=== PATIENT | male | born 1980 | race Two or more races ===

== ENCOUNTER 2019-09-06 00:44 | Observation (INO) ==
[2019-09-06 01:02] VITALS: BMI 23.4
--- NOTE | 2019-09-06 01:28 | DR.ABDMALE ---
HPI Time seen Time Seen by Provider: 09/06/19 02:13 PCP Primary Care Physician: MICHOACANO HPI comment HPI Comment: PATIENT IS 39YR OLD MALE IN ER WITH ABDOMINAL PAIN TIMES 2 DAYS. HE IS JAUDICE FOR SEVERAL WEEKS NOW. HAD BOWEL MOVEMENT TODAY. NAUSEATED BUT NOT VOMITING. DENIES FEVER. PAIN IS SHARP, 10/10 RADIATING TO THE SIDES. DENIES DYSURI. DENIES HAVING SIMILAR PAIN IN THE PAST. PATIENT HAVE NO SIGNIFICANT MEDICAL HISTORY EXCEPT LIVER PROBLEM FROM DAILY ALCOHOL INTAKE. CURRENTLY HE IS JAUDICE AND HAVE BEING JAUDICE FOR FEW WEEKS.PATIENT SPEAKS FIJIAN AND TALKING VIA TELEPHONE [place]. Complaint Chief Complaint Doctors Comments: ABDOMINAL PAIN TIMES 2 DAYS. Chief Complaint:: PT C/O LOWER ABD PAIN FOR 2 DAYS PT'S EYES ARE YELLOW IN COLOR PT ADMITS TO DRINKING BEER DAILY COVID-19 Coronavirus risk:travel/contact w/high risk person: No Has patient experienced Coronavirus symptoms: No Reviewed Nurses Notes Review: Yes Mode of arrival Mode of Arrival: EMS Timing Onset of Chief Complaint: 09/04/19 Came on: Suddenly Duration Duration: Constant Duration: Days Location Location: Diffuse Severity Severity: Moderate Quality Quality: Cramping Context Onset: Suddenly History of: None Modifying factors Worsening Factors: Exertion Improving Factors: Lying Still Associated signs and symptoms Associated Signs and Symptoms: Nausea and Other (JAUDICE.) PMH PMH Past Medical History: No Past Surgical History: No Family History History of Family Medical Conditions: No Social History Does patient currently use any type of tobacco product: No Have you used tobacco products in the last 12 months: No Type of Tobacco Use: None Does any household member use tobacco: No Alcohol Use: None Do you use any recreational Drugs:: No Lives With: Family Lives Where: Home Travel Risk Coronavirus risk:travel/contact w/high risk person: No Has patient experienced Coronavirus symptoms: No Infectious screening In the last 2 months have you had wt loss of >10#?: NO Have you had fever, night sweats or hemotysis?: No Have you traveled outside the country in the last 6 months?: No Isolation: Standard ROS Review of Systems Constitutional: See HPI and Weakness; negative Fever Eyes: No Symptoms Reported, See HPI and Other (JAUDICE.) ENTM: No Symptoms Reported and See HPI; negative Ear Pain, Nose Discharge, Nose Congestion and Throat Pain Respiratoy: No Symptoms Reported and See HPI; negative Moist Cough, Short of Breath and Wheezing Cardiovascular: No Symptoms Reported and See HPI; negative Chest Pain, Edema and Palpitations Gastrointestinal/Abdominal: See HPI and Nausea; negative Abdominal Pain, Constipation, Diarrhea and Vomiting Genitourinary: No Symptoms Reported and See HPI; negative Dysuria, Frequency and Hematuria Neurological: See HPI and Weakness; negative Headache and Dizziness Musculoskeletal: See HPI and Back Pain; negative Muscle Pain Integumentary: See HPI, Change in Color and Juandice Hematologic/Lymphatic: No Symptoms Reported, See HPI, Easy Bruising and Swollen Glands Endocrine: No Symptoms Reported and See HPI; negative Increased Thirst and Increased Urine Psychiatric: No Symptoms Reported and See HPI All Other Systems: Reviewed and Negative PE Vital Signs Vital Signs: Temp Pulse Resp BP Pulse Ox 09/06/19 00:57 98.1 F 79 18 107/56 100 General Limitations: No Limitations General Appearance: Alert and In No Apparent Distress Head Head Exam: Normal Inspection and Atraumatic Eyes Eye exam: PERRL and Scleral Icterus; negative Conjunctival Injection ENT ENT Exam: Normal Exam, Normal Oropharynx, Normal External Ear Exam and TM's Normal Bilaterally Neck Neck Exam: Normal Inspection and Trachea Midline; negative Tenderness and Lymphadenopathy Chest Chest Inspection: Normal Inspection and Symmetric Chest Wall Rise; negative Tenderness Respiratory Respiratory Exam: Normal Lung Sounds Bilat; negative Accessory Muscle Use, Chest Wall Tenderness and Respiratory Distress Respiratory Exam: Bilateral: Clear to Auscultation Cardiovascular Cardiovascular Exam: Regular Rate, Normal Rhythm and Normal Heart Sounds; negative Systolic Murmur and Diastolic Murmur Abdominal Exam Abdominal Exam: Normal Inspection, Normal Bowel Sounds, Soft and Tenderness Abdominal Tenderness: Diffuse and Moderate Rectal Rectal Exam: Deferred Back Back Exam: Normal Inspection Extremeties Extremities Exam: Normal Inspection Exam: Male: Deferred Neurologic Neurological Exam: Alert and Oriented X3; negative Motor Sensory Deficit Psychiatric Psychiatric Exam: Normal Affect and Normal Mood Skin Skin Exam: Other (JAUDICED.) MDM Differential Diagnosis Differential Diagnosis: Bowel Obstruction, Cholcystitis, Cholelethiasis, Constipation, Diverticular disease, Gastritus/PUD, Gastroenteritis, Inflammatory BD, Pancreatitis, Urinary tract infection and Urolithiasis COURSE Treatment Treatment: SEE ORDERS. Consultation Consultation Comments: DISCUSSED PATIENT WITH DR. OLIVA. HE WILL ADMIT PATIENT. Education/Counseling Education/Counseling: Patient Educated On: Diagnosis ROR Labs Reviewed Laboratory Results Reviewed?: Yes Result Diagrams: 09/06/19 01:34 09/06/19 01:34 Laboratory: WBC 4.1 X10^3/uL (3.6-10.0) 09/06/19 01:34 RBC 3.61 X10^6/uL (4.7-6.0) L 09/06/19 01:34 Hgb 11.1 g/dL (13.5-18.0) L 09/06/19 01:34 Hct 31.9 % (42.0-54.0) L 09/06/19 01:34 MCV 88.4 fL (80.0-100.0) 09/06/19 01:34 MCH 30.8 pg (27.0-34.0) 09/06/19 01:34 MCHC 34.8 g/dL (33.0-35.0) 09/06/19 01:34 RDW 16.4 % (11.6-16.5) 09/06/19 01:34 Plt Count 26 X10^3/uL (150.0-450.0) L 09/06/19 01:34 Plt Count Comment Decreased (ADEQUATE) 09/06/19 01:34 MPV 9.3 fL (7.4-11.0) 09/06/19 01:34 Neut % (Auto) 48.3 % (42.0-75.0) 09/06/19 01:34 Lymph % (Auto) 39.4 % (21.0-51.0) 09/06/19 01:34 Miner % (Auto) 8.4 % (0.0-13.0) 09/06/19 01:34 Eos % (Auto) 2.8 % (0.9-2.9) 09/06/19 01:34 Baso % (Auto) 1.1 % (0.2-1.0) H 09/06/19 01:34 Neut # (Auto) 2.0 x10^3/uL (2.2-4.8) L 09/06/19 01:34 Lymph # (Auto) 1.6 X10^3/uL (1.3-2.9) 09/06/19 01:34 Miner # (Auto) 0.3 x10^3/uL (0.3-0.8) 09/06/19 01:34 Eos # (Auto) 0.1 x10^3/uL (0.0-0.2) 09/06/19 01:34 Baso # (Auto) 0.0 X10^3/uL (0.0-0.1) 09/06/19 01:34 Absolute Nucleated RBC 0.2 /100WBC 09/06/19 01:34 Plt Morphology Comment Normal (NORMAL) 09/06/19 01:34 RBC Morphology Normal (NORMAL) 09/06/19 01:34 PT 25.8 SECONDS (11.8-14.3) 09/06/19 01:34 INR Target Range - 09/06/19 01:34 INR 2.45 (0.8-1.3) H 09/06/19 01:34 APTT 50.2 SECONDS (22.9-36.5) H 09/06/19 01:34 PTT Comment - 09/06/19 01:34 Sodium 144 mmol/L (136-145) 09/06/19 01:34 Corrected Sodium TNP 09/06/19 01:34 Potassium 3.5 mmol/L (3.5-5.1) 09/06/19 01:34 Chloride 108 mmol/L (98-107) H 09/06/19 01:34 Carbon Dioxide 26.4 mmol/L (21-32) 09/06/19 01:34 BUN 5 mg/dL (7-18) L 09/06/19 01:34 Creatinine 0.64 mg/dL (0.70-1.30) L 09/06/19 01:34 Est GFR (MDRD) Af Amer > 60 (>60) 09/06/19 01:34 Est GFR (MDRD) Non-Af > 60 (>60) 09/06/19 01:34 Glucose 103 mg/dL (65-99) H 09/06/19 01:34 Calcium 7.1 mg/dL (8.5-10.1) L 09/06/19 01:34 Corrected Calcium 8.4 mg/dL (8.5-10.1) L 09/06/19 01:34 Total Bilirubin 5.80 mg/dL (0.2-1.0) H 09/06/19 01:34 AST 132 Units/L (15-37) H 09/06/19 01:34 ALT 61 Units/L (12-78) 09/06/19 01:34 Alkaline Phosphatase 280 Units/L (46-116) H 09/06/19 01:34 Total Protein 6.2 g/dL (6.4-8.2) L 09/06/19 01:34 Albumin 2.4 g/dL (3.4-5.0) L 09/06/19 01:34 Globulin 3.8 g/dL (2.5-4.5) 09/06/19 01:34 Albumin/Globulin Ratio 0.6 Ratio (1.1-2.1) L 09/06/19 01:34 Amylase 47 Units/L (25-115) 09/06/19 01:34 Lipase 342 Units/L (73-393) 09/06/19 01:34 Specimen Type Random urine 09/06/19 01:41 Urine Color Yellow (YELLOW) 09/06/19 01:41 Urine Appearance Clear (CLEAR) 09/06/19 01:41 Urine pH 6.0 (5.0 - 8.0) 09/06/19 01:41 Ur Specific [place] 1.005 (1.000-1.030) 09/06/19 01:41 Urine Protein Negative (NEGATIVE) 09/06/19 01:41 Urine Glucose (UA) Negative (NEGATIVE) 09/06/19 01:41 Urine Ketones Negative (NEGATIVE) 09/06/19 01:41 Urine Occult Blood Negative (NEGATIVE) 09/06/19 01:41 Urine Nitrite Negative (NEGATIVE) 09/06/19 01:41 Urine Bilirubin Negative (NEGATIVE) 09/06/19 01:41 Urine Urobilinogen Normal (NORMAL) 09/06/19 01:41 Ur Leukocyte Esterase Negative (NEGATIVE) 09/06/19 01:41 XRAY XRAY Interpreted by: Radiologist (REPORT NOTED AND DISCUSSED WITH PATIENT.) and Self Opioid Opioid Risk Tool Age (Dorian box if 16-45): Yes History of Preadolescent Sexual Abuse: No Total: 1 Total Score Risk Category: Low Risk Copyright: Grey predicting aberrant behaviors Diagnosis Discharge Problem: Thrombocytopenia, Acute cholecystitis, Sclerosing mesenteritis, Diverticulitis Liver cirrhosis Qualifiers: Hepatic cirrhosis type: alcoholic cirrhosis Ascites presence: with ascites Qualified Code(s): K70.31 - Alcoholic cirrhosis of liver with ascites Cholelithiasis Qualifiers: Cholelithiasis location: gallbladder Cholecystitis presence: with cholecystitis Cholecystitis acuity: acute Biliary obstruction: with biliary obstruction Qualified Code(s): K80.01 - Calculus of gallbladder with acute cholecystitis with obstruction Instructions Forms: Excuse From Work Precautions for COVID19 Patient Portal Social Distancing
[2019-09-06 01:50] LABS: EOSINOPHILS # (AUTO) 0.1 x10^3/uL (0.0-0.2); LYMPHOCYTES # (AUTO) 1.6 X10^3/uL (1.3-2.9); MEAN CORPUSCULAR HEMOGLOBIN 30.8 pg (27.0-34.0); MEAN CORPUSCULAR HGB CONC 34.8 g/dL (33.0-35.0); WHITE BLOOD COUNT 4.1 X10^3/uL (3.6-10.0)
[2019-09-06 01:51] LABS: BILIRUBIN,URINE NEGATIVE (NEGATIVE); BLOOD/HEMOGLOBIN,URINE NEGATIVE (NEGATIVE); GLUCOSE, URINE NEGATIVE (NEGATIVE); KETONES,URINE NEGATIVE (NEGATIVE); LEUKOCYTE ESTERASE ,URINE NEGATIVE (NEGATIVE); NITRITES,URINE NEGATIVE (NEGATIVE); PROTEIN,URINE NEGATIVE (NEGATIVE); UROBILINOGEN,URINE NORMAL (NORMAL)
[2019-09-06 01:56] LABS: APPEARANCE,URINE CLEAR (CLEAR); COLOR,URINE YELLOW (YELLOW)
[2019-09-06 01:58] LABS: BASOPHILS % (AUTO) 1.1 % (0.2-1.0); EOSINOPHILS % (AUTO) 2.8 % (0.9-2.9); HEMATOCRIT 31.9 % (42.0-54.0); HEMOGLOBIN 11.1 g/dL (13.5-18.0); LYMPHOCYTES % (AUTO) 39.4 % (21.0-51.0); MEAN CORPUSCULAR VOLUME 88.4 fL (80.0-100.0); MEAN PLATELET VOLUME 9.3 fL (7.4-11.0); MONOCYTES # (AUTO) 0.3 x10^3/uL (0.3-0.8); MONOCYTES % (AUTO) 8.4 % (0.0-13.0); NEUTROPHILS % (AUTO) 48.3 % (42.0-75.0); PLATELET COUNT 26 X10^3/uL (150.0-450.0); RED BLOOD COUNT 3.61 X10^6/uL (4.7-6.0); RED CELL DISTRIBUTION WIDTH 16.4 % (11.6-16.5)
[2019-09-06 01:59] LABS: ALANINE AMINOTRANSFERASE 61 Units/L (12-78); ALBUMIN 2.4 g/dL (3.4-5.0); ALKALINE PHOSPHATASE 280 Units/L (46-116); AMYLASE 47 Units/L (25-115); ASPARTATE AMINO TRANSFERASE 132 Units/L (15-37); BLOOD UREA NITROGEN 5 mg/dL (7-18); CALCIUM 7.1 mg/dL (8.5-10.1); CARBON DIOXIDE 26.4 mmol/L (21-32); CHLORIDE 108 mmol/L (98-107); COR CA(FOR HYPOALB) 8.4 mg/dL (8.5-10.1); CREATININE 0.64 mg/dL (0.70-1.30); LIPASE 342 Units/L (73-393); SODIUM 144 mmol/L (136-145); TOTAL PROTEIN 6.2 g/dL (6.4-8.2); eGFR NON BLACK RACES > 60 (>60)
[2019-09-06 02:05] LABS: PLATELET MORPHOLOGY COMMENT NORMAL (NORMAL)
--- NOTE | 2019-09-06 03:47 | CT ---
CT abdomen and pelvis with contrastIndication: Lower abdominal painTECHNIQUEHelical images through the abdomen and pelvis with contrast. Coronal and sagittal reformats provided.COMPARISONNone availableFINDINGSLimited images through the lower chest demonstrate no acute abnormality. Review of bone windows demonstrates no destructive osseousAbdomen: There is marked hepatic cirrhosis. Portal venous hypertension is seen with enlarged portal vein and numerous varices. The umbilical vein is recanalized, with portosystemic shunt seen via the femoral vessels.Paraesophageal large varices are noted as well.Adrenal glands are normal. The kidneys show no hydroureteronephrosis. Aorta and branch vessels are normal. Spleen is enlarged. Perigastric varices noted. The stomach and small bowel show no convincing acute abnormality. Colonic diverticulosis is noted, with wall thickening of the right colon. Appendix is normal. There is haziness of the abdominal mesentery.Gallstones are seen in the gallbladder.Pelvis: Urinary bladder and rectum are normal. Prostate gland is normal.IMPRESSION1. Marked hepatic cirrhosis with portal venous hypertension, splenomegaly and numerous varices including paraesophageal varices.2. There is small ascites and haziness to the mesentery with wall thickening of the colon. Most of this is probably reactive to the cirrhosis, but concurrent colitis or mesenteritis is not excluded.3. Gallstones in the gallbladder. Mild reactive wall thickening of the gallbladder to the cirrhosis is favored. Nevertheless, acute cholecystitis cannot be excluded in the correct clinical setting.Electronically signed by: EDILSON SAUCEDO (September 06, 2019 03:46:33)
[2019-09-06] MEDS ORDERED: D5 NS 1000 ML 1,000 ML IV ONE (04:20)
[2019-09-06] MEDS ORDERED: ZOSYN VIAL 3.375 GRAMS 3.375 G in NS 100 ML IV + SPIKE MINIBAG* 100 ML IV ONE (04:27)
[2019-09-06] MEDS ORDERED: D5 NS 1000 ML 1,000 ML IV SCH (05:00)
[2019-09-06] MEDS ORDERED: ZOSYN VIAL 3.375 GRAMS IV ONE (05:16)
[2019-09-06] MEDS ORDERED: NS 100 ML IV + SPIKE MINIBAG* 100 ML IV ONE (05:16)
[2019-09-06] MEDS ORDERED: PEPCID 20 MG IV PREMIX* 20 MG/50 ML BAG IV PRN (05:26)
[2019-09-06] MEDS ORDERED: ZOFRAN INJ 4 MG VIAL IVP PRN (05:26)
--- NOTE | 2019-09-06 09:13 | US ---
HISTORYABD PAINSTUDYABDOMINAL SONOGRAMCOMPARISONCT abdomen/pelvis dated same day.TECHNIQUEMultiple ramsay scale and color flow Doppler images of the abdomen were obtained.FINDINGSThe liver is small and demonstrates increased echogenicity likely representing diffuse fatty infiltration versus fibrosis. Cirrhotic appearing liver border. The portal vein is patent and demonstrates hepatopetal flow. No intraparenchymal mass or intrahepatic biliary ductal dilatation can be identified. The gallbladder gallbladder lumen is filled with stones and sludge. The gallbladder wall is thickened to 6 mm. Associated pericholecystic fluid likely representing ascites. No sonographic Covarrubias sign. The common bile duct is normal measuring 3 mm.The visualized portions of the pancreas appear normal. The spleen is enlarged to 17.0 cm but otherwise demonstrates normal echotexture.The right and left kidney are normal in echotexture and size. The right kidney measures 10.3 cm. The left kidney measures 11.6 cm. No mass, hydronephrosis, or stone can be identified.The visualized portions of the abdominal aorta are normal in size without aneurysmal dilatation. The inferior vena cava is unremarkable as well.IMPRESSIONOne. Cirrhotic liver with associated small amount of abdominal ascites consistent with portal hypertension. No obvious liver mass.Two. Cholelithiasis without sonographic evidence to suggest acute cholecystitis. If clinically concerned for gallbladder dysfunction, consider nuclear medicine hepatobiliary scan.Three. Splenomegaly.Electronically signed by: MAN VIDAL (September 06, 2019 09:12:04)
[2019-09-06 12:28] VITALS: BP 109/55
== END 2019-09-06 12:20 | disposition home or self-care (01) ==
LOC: MED/SURG 00:45 → ER 00:45 → MED/SURG 06:05
PROVIDERS: ADMIT Obstetrics & Gynecology Obstetrics; ATTEND Obstetrics & Gynecology Obstetrics
DX: K80.70 Calculus of gallbladder and bile duct without cholecystitis without obstruction; K70.31 Alcoholic cirrhosis of liver with ascites; F10.10 Alcohol abuse, uncomplicated; R79.1 Abnormal coagulation profile; R10.84 Generalized abdominal pain; K40.90 Unilateral inguinal hernia, without obstruction or gangrene, not specified as recurrent; R16.1 Splenomegaly, not elsewhere classified
CPT/HCPCS: 36415; 74177; 76700; 80053; 81003; 82150; 83690; 85025; 85610; 85730; 96365; 96367; 96374; 99284; A4222; G0378; J2543; J7042; J7050